=== PATIENT | male | born 1955 | race Caucasian/White ===

== ENCOUNTER 2017-06-22 00:56 | Outpatient (CLI) | payer MEDICARE, BC ==
[~2017-06-22 00:56] MED LIST: ASPI81TA52 PO; CARV3.12 PO; CLOP75TA15 PO; LISI-600 PO
== END 2017-06-22 23:59 | disposition home or self-care (01) ==
LOC: DIABETIC 00:56
DX: R73.03 Prediabetes (principal); I10 Essential (primary) hypertension; E78.5 Hyperlipidemia, unspecified
CPT/HCPCS: G0108

== ENCOUNTER 2017-11-23 01:34 | Outpatient (CLI) | payer MEDICARE, OTHER | END 2017-11-23 23:59 | disposition home or self-care (01) | LOC: DIABETIC 01:34 | DX: R73.03 Prediabetes (principal); I10 Essential (primary) hypertension | CPT/HCPCS: G0108 ==

== ENCOUNTER 2020-11-04 16:44 | Emergency (ER) | payer MEDICARE, OTHER ==
[~2020-11-04] VITALS: Ht 182.9 cm; Wt 106.8 kg
[~2020-11-04 16:44] MED LIST changes: -LISI-600 PO; +LISI20TA28 PO
[2020-11-04] MEDS ORDERED: dexamethasone sod phosphate 10mg/ml inj PO STA (21:23)
[2020-11-04] MEDS ORDERED: ketorolac trometh. 30mg/ml inj. IM ONE (21:25)
[2020-11-04] MEDS ORDERED: COLC1TAB2 PO (21:32)
[2020-11-04] MEDS ORDERED: HYDR-3965 PO (21:32)
[2020-11-04] MEDS ORDERED: DOXY100C43 PO (21:57)
[2020-11-04 22:25] VITALS: BP 129/69
== END 2020-11-04 22:31 | disposition home or self-care (01) ==
LOC: ER 16:45
DX: M10.9 Gout, unspecified (principal); I10 Essential (primary) hypertension; Z79.82 Long term (current) use of aspirin; Z79.2 Long term (current) use of antibiotics; Z79.899 Other long term (current) drug therapy
CPT/HCPCS: 73110; 96372; 99283; J1100; J1885

== ENCOUNTER 2021-12-10 00:42 | Emergency (ER) | payer MEDICARE, OTHER ==
[~2021-12-10] VITALS: Ht 180.3 cm; Wt 104.5 kg
[~2021-12-10 00:42] MED LIST changes: +COLC1TAB2 PO
[2021-12-10 00:51] VITALS: BP 139/78
[2021-12-10] MEDS ORDERED: ACET-3068 PO (04:15)
[2021-12-10] MEDS ORDERED: ketorolac trometh. 30mg/ml inj. IM ONE (04:20)
== END 2021-12-10 04:51 | disposition home or self-care (01) ==
LOC: ER 00:42
DX: M65.4 Radial styloid tenosynovitis [de Quervain] (principal); I10 Essential (primary) hypertension; N40.0 Benign prostatic hyperplasia without lower urinary tract symptoms; Z79.82 Long term (current) use of aspirin; Z79.899 Other long term (current) drug therapy
CPT/HCPCS: 29125; 96372; 99284; J1885

== ENCOUNTER 2023-01-22 13:10 | Day surgery (SDC) | payer MEDICARE, OTHER ==
[2023-01-21 14:12] LABS: BASOPHILS % (AUTO) 0.6 % (0-1); EOSINOPHILS # (AUTO) 0.1 X10'3 (0-0.9); EOSINOPHILS % (AUTO) 1.1 % (0-6); HEMATOCRIT 43.6 % (42.0-52.0); HEMOGLOBIN 14.6 g/dl (14.0-17.9); LYMPHOCYTES # (AUTO) 2.3 X10'3 (1.1-4.8); LYMPHOCYTES % (AUTO) 27.4 % (21-51); MEAN CORPUSCULAR HEMOGLOBIN 29.5 PG (27.0-31.0); MEAN CORPUSCULAR HGB CONC 33.4 g/dL (33.0-36.5); MEAN CORPUSCULAR VOLUME 88.3 FL (78-98); MEAN PLATELET VOLUME 9.3 FL (7.4-10.4); MONOCYTES # (AUTO) 0.8 X10'3 (0-0.9); MONOCYTES % (AUTO) 9.2 % (2-12); NEUTROPHILS # (AUTO) 5.1 X10'3 (1.8-7.7); NEUTROPHILS % (AUTO) 61.7 % (42-75); PLATELET COUNT 178 X10'3 (140-440); RED BLOOD COUNT 4.93 X10'6 (4.70-6.10); RED CELL DISTRIBUTION WIDTH 14.1 % (11.5-14.5); WHITE BLOOD COUNT 8.2 X10'3 (4.5-11.0)
[2023-01-21 14:16] LABS: ALBUMIN 3.9 G/DL (3.4-5.0); ANION GAP 7 (8-16); BLOOD UREA NITROGEN 22 MG/DL (7-18); BUN/CREATININE RATIO 21.6 (10.0-20.0); CALCIUM 10.1 MG/DL (8.5-10.1); CHLORIDE 102 MMOL/L (99-107); CREATININE 1.02 MG/DL (0.60-1.10); GLUCOSE 101 MG/DL (70-104); POTASSIUM 4.1 MMOL/L (3.5-5.1); SODIUM 134 MMOL/L (135-145); TOTAL CARBON DIOXIDE 25.4 MMOL/L (24-32); eGFR 73 ML/MIN
[2023-01-21 14:17] LABS: APTT 33 SECONDS (22-32); INR 1.1 INR; PROTHROMBIN TIME 11.4 SECONDS (9.0-12.0)
[2023-01-22] VITALS (10 sets, daily range): BP systolic 108–151; BP diastolic 56–79; PULSE 58–65; RESP 12–14; TEMP 98; O2SAT 94–99
[~2023-01-22] VITALS: Ht 180.3 cm; Wt 107.1 kg
[2023-01-22] MEDS ORDERED: diphenhydrAMINE 25mg capsule PO PRN (13:25)
[2023-01-22] MEDS ORDERED: normal saline 1,000 ML IV SCH (13:25)
[2023-01-22] MEDS ORDERED: LORazepam 0.5 MG tablet PO PRN (13:25)
[2023-01-22] MEDS ORDERED: OXYB10TA30 PO (14:46)
[2023-01-22] MEDS ORDERED: ROSU20TA73 PO (14:46)
[2023-01-22] MEDS ORDERED: FLO0.4C (14:46)
[2023-01-22] MEDS ORDERED: verapamil 2.5 mg/ml inj IV ONE (15:18)
[2023-01-22] MEDS ORDERED: LIDOcaine 1% (10mg/ml) 2ml vial ONE (15:18)
[2023-01-22] MEDS ORDERED: midazolam 1 mg/ML 2ml injection ONE (15:18)
[2023-01-22] MEDS ORDERED: fentaNYL/PF 50MCG/1 ML 2ML syringe ONE (15:18)
[2023-01-22] MEDS ORDERED: iohexol 350MG/ML 100ml bottle IV ONE (15:19)
[2023-01-22] MEDS ORDERED: heparin 1,000unit/ml 10ml vial 10 ML ONE (15:19)
[2023-01-22] MEDS ORDERED: nitroGLYCERIN 500mcg/5mL D5W 5 ML IV ONE (15:21)
[2023-01-22] MEDS ORDERED: CARV3.1244 PO (15:46)
== END 2023-01-22 18:20 | disposition home or self-care (01) ==
LOC: SSTAY O 13:10
PROVIDERS: ATTEND Student in an Organized Health Care Education/Training Program
DX: R07.89 Other chest pain (principal); I25.10 Atherosclerotic heart disease of native coronary artery without angina pectoris; I25.2 Old myocardial infarction; E78.5 Hyperlipidemia, unspecified; I27.20 Pulmonary hypertension, unspecified; I10 Essential (primary) hypertension; I42.8 Other cardiomyopathies; Z86.711 Personal history of pulmonary embolism; Z79.899 Other long term (current) drug therapy; Z79.82 Long term (current) use of aspirin; Z87.891 Personal history of nicotine dependence; Z88.8 Allergy status to other drugs, medicaments and biological substances; Z95.5 Presence of coronary angioplasty implant and graft
CPT/HCPCS: 36415; 80048; 85025; 85610; 85730; 93005; 93458; 99152; A6258; J1644; J2250; J3010; J3490; J7030; Q0163; Q9967; A6402; C1894

== ENCOUNTER 2024-05-01 14:27 | Outpatient (CLI) | payer MEDICARE, OTHER ==
[~2024-05-01 14:27] MED LIST changes: -ASPI81TA52 PO; -CARV3.12 PO; +CARV3.1244 PO; -CLOP75TA15 PO; -COLC1TAB2 PO; +FLO0.4C; +OXYB10TA30 PO; +ROSU20TA98 PO
== END 2024-05-01 23:59 | disposition home or self-care (01) ==
LOC: RAD 14:27
PROVIDERS: ATTEND Nurse Practitioner Family
DX: R91.1 Solitary pulmonary nodule (principal); I25.10 Atherosclerotic heart disease of native coronary artery without angina pectoris
CPT/HCPCS: 71250